=== PATIENT | male | born 1990 | race African-American/Black ===

== ENCOUNTER 2022-04-26 03:29 | Emergency (ER) | payer SELFPAY ==
[~2022-04-26] VITALS: Ht 170.2 cm; Wt 63.5 kg
[2022-04-26 04:06] VITALS: BP 100/65
--- NOTE | 2022-04-26 06:09 | NUR ---
Patient ambulated to bed 8.
--- NOTE | 2022-04-26 06:12 | NUR ---
Dr. Esteves examining patient.
--- NOTE | 2022-04-26 06:23 | NUR ---
31/M BIB SELF C/C SHARP RECTAL PAIN 05/12 X1DAY. PER PATIENT PAIN HAS EXACERBATED AND IT HURTS TO SIT ON BOTTOM. PATIENT STATED THAT IT JUST HURTS WHEN HE HAD A BOWEL MOVEMENT. DNIES BLEEDING/CP/SOB/N/V/C/D/FEVER AT THIS TIME. PATIENT IS AAOX4 AND AMBULATORY. BED LOW AND LOCKED. SIDE RAIL UP X1. ALL NEEDS MET. MD RAMSAY AT BEDSIDE ASSESSING PATIENT. DENIES PMHX, RX NKA
[2022-04-26] MEDS ORDERED: DOCU-299 PO (06:32)
[2022-04-26] MEDS ORDERED: HYDR-2734 TP (06:32)
[2022-04-26] MEDS ORDERED: IBUP-2213 PO (06:32)
--- NOTE | 2022-04-26 06:40 | NUR ---
Rere hernandez in ED - 04/26/22 at 0641 by ANNETTE PATIETN GOT OUT OF BED WITH STEADY GAIT. PROVIDE PATIENT WITH [facility]. CHANGED AND REPOSITIONED . ALL NEEDS MET.
[2022-04-26 06:54] VITALS: BP 105/65
--- NOTE | 2022-04-26 06:54 | NUR ---
Patient discharged with v/s stable. Written and verbal after care instructions given and explained. Patient alert, oriented and verbalized understanding of instructions. Ambulatory with steady gait. All questions addressed prior to discharge. ID band removed. Patient advised to follow up with PMD. Rx of HYDROCORTISONE,IBUPROFEN given.
== END 2022-04-26 06:54 | disposition home or self-care (01) ==
LOC: MED 03:29
DX: K62.89 Other specified diseases of anus and rectum (principal)
CPT/HCPCS: 99282